=== PATIENT | male | born 1965 | race Caucasian/White ===

== ENCOUNTER 2017-10-07 07:42 | Day surgery (SDC) | payer OTHER ==
[~2017-10-07] VITALS: Ht 157.5 cm; Wt 76.7 kg
[~2017-10-07 07:42] MED LIST: ACET650T85; DM H
[2017-10-07 08:13] VITALS: Ht 157.5 cm; Wt 76.7 kg
[2017-10-07] MEDS ORDERED: TAMS0.4C2 PO (08:19)
[2017-10-07 08:46] VITALS: BP 131/83; PULSE 87; RESP 20
--- NOTE | 2017-10-07 08:59 | OPPN ---
Date/Time of Note Date/Time of Note DATE: 10/07/17 TIME: 08:57 Proc Note GI Procedure Date 10/07/17 Indication: screening/surveillance Pre-procedure Diagnosis r/o colon polyps Post-procedure Diagnosis 2.5 cm polyp on a stalk at 30 cm diverticulosis Procedure Performed: Colonoscopy Surgeon see signature line Ore Miner none Anesthesia Type: moderate sedation Tourniquet Time none EBL none Transfusion required none Biopsy 1: polyp Grafts/Implants none Tubes/Drains none Complication(s) none Procedure Description colonoscopy with mod sedation 2.5 cm polyp, on a stalk noted at 30 cm from anus polypectomy performed diverticulosis MIKAL ARREOLA MD Oct 07, 2017 08:59
[2017-10-07] MEDS ORDERED: FENTAnyl 50 MCG/ML VIAL ONE (09:10)
[2017-10-07] MEDS ORDERED: MIDAZOLAM 1 MG/ML 2 ML INJ ONE ×2 (09:10)
[2017-10-07 09:24] VITALS: BP 109/74; RESP 14
--- NOTE | 2017-10-07 11:23 | GILP ---
DATE OF PROCEDURE: NAME OF PROCEDURE: Colonoscopy and polypectomy. PREOPERATIVE DIAGNOSIS: Screening colonoscopy to rule out colon polyps. POSTOPERATIVE DIAGNOSES: 1. Two and a half centimeter polyp noted on a stalk at 30 cm from the anus. Polypectomy was perfor med. Tattooing was performed. 2. Diverticulosis noted. DESCRIPTION OF PROCEDURE: After the informed written consent was obtained, the patient was asked to lie on the left lateral side. The patient was given 4 mg Versed and 50 mcg of fentanyl as intraven ous anesthesia. When the patient became somnolent, the Olympus video colonoscope was introduced int o the rectum and scope was advanced all the way to the cecum. A 2.5 cm polyp was noted on a stalk l ocated at 30 cm from the anus and on the way out, a polypectomy was performed, but before polypectom y, tattooing was performed by using the SPOT. At this time, scope was withdrawn, on the way out, no additional abnormalities detected. As mentioned, diverticulosis noted mostly in the left side of t he colon. No significant hemorrhoids were noted and the procedure was terminated. PLAN: Recommend wait for the pathology report. Dictated By: MIKAL MADSEN/JAIMEE Conf#: [id number] DID#: [id number]
== END 2017-10-07 09:40 | disposition home or self-care (01) ==
LOC: GIL 07:42
PROVIDERS: ATTEND Internal Medicine Gastroenterology
DX: Z12.11 Encounter for screening for malignant neoplasm of colon (principal); K63.5 Polyp of colon; K57.90 Diverticulosis of intestine, part unspecified, without perforation or abscess without bleeding; I10 Essential (primary) hypertension
CPT/HCPCS: 45380; 88305; J2250; J3010; Z7610